=== PATIENT | female | born 1960 | race Two or more races ===

== ENCOUNTER 2017-03-30 13:01 | Day surgery (SDC) | payer OTHER ==
[~2017-03-30] VITALS: Ht 149.9 cm; Wt 54.2 kg
[2017-03-30] VITALS (11 sets, daily range): BP systolic 109–151; BP diastolic 60–68; PULSE 67–82; RESP 10–19; Ht 149.9 cm; Wt 54.2 kg
[~2017-03-30 13:01] MED LIST: CEFAZOLIN 2 GM/50 ML (PMX) 50 ML IVPB SCH; ONDA4TAB8 PO; SOD CHLORIDE 0.9% 1,000 ML IV SCH
--- NOTE | 2017-03-30 13:56 | RADRPT ---
PROCEDURE: XR Chest. CLINICAL INDICATION: Preoperative, cholecystectomy TECHNIQUE: Single frontal view of the chest was obtained COMPARISON: None FINDINGS: The heart and mediastinum are within normal limits. The lungs are clear. There is no pleural effusion or pneumothorax. RPTAT: AA IMPRESSION: No acute disease. .Jorge Zuluaga MD, MD Date Time Electronically viewed and signed by .Jorge uZluaga MD, on 03/30/2017 13:56 .S/
[2017-03-30] MEDS ORDERED: LISI20TA11 PO (14:43)
[2017-03-30] MEDS ORDERED: BUPIVACAINE 0.25% (MPF) 30 ML INJ ONE ×2 (16:20→17:36)
--- NOTE | 2017-03-30 16:43 | RADRPT ---
Vent Rate: 64 bpm RR Interval: 0 msec AR Interval: 142 msec QRS Duration: 80 msec QT Interval: 408 msec QTC Interval: 420 msec P-R-T [place]: 38 - -7 - 45 degrees Normal sinus rhythm Normal ECG Electronically Signed By: Aristeo Berrios [id number]
[2017-03-30] MEDS ORDERED: MIDAZOLAM 1 MG/ML 2 ML INJ ONE (17:02)
[2017-03-30] MEDS ORDERED: NEOSTIGMINE 3 MG/3 ML SYRINGE ONE (17:52)
[2017-03-30] MEDS ORDERED: LIDOCAINE 2% (SDV) 5 ML INJ ONE (17:52)
[2017-03-30] MEDS ORDERED: PROPOFOL 20 ML ONE (17:52)
[2017-03-30] MEDS ORDERED: ONDANSETRON 4 MG INJ ONE (17:52)
[2017-03-30] MEDS ORDERED: ROCURONIUM 50 MG INJ ONE (17:52)
[2017-03-30] MEDS ORDERED: GLYCOPYRROLATE 0.4 MG INJ ONE (17:52)
[2017-03-30] MEDS ORDERED: CEFAZOLIN 1 GM INJ ONE (17:52)
[2017-03-30] MEDS ORDERED: FENTAnyl 50 MCG/ML VIAL IV PRN (18:00)
[2017-03-30] MEDS ORDERED: HYDROCODONE/APAP (5/325) TAB PO ONE (18:00)
[2017-03-30] MEDS ORDERED: morphine (1 MG/ML) 10ML SYRINGE IV PRN ×2 (18:00)
[2017-03-30] MEDS ORDERED: ONDANSETRON 4 MG INJ IV PRN (18:00)
[2017-03-30] MEDS ORDERED: DIPHENHYDRAMINE 50 MG INJ IV PRN (18:00)
[2017-03-30] MEDS ORDERED: METOCLOPRAMIDE 10 MG INJ IV PRN (18:00)
[2017-03-30] MEDS ORDERED: MEPERIDINE 25 MG INJ IV PRN (18:00)
--- NOTE | 2017-03-30 18:18 | OPR ---
DATE OF OPERATION: 03/30/2017 INDICATION: This is a 56-year-old female with symptomatic gallstones and cholecystitis. She reques ts surgical excision. Risks, alternatives, benefits, and personnel were discussed with the patient. The patient expresses understanding and consents to the operation. PREOPERATIVE DIAGNOSIS: Symptomatic gallstones and cholecystitis. POSTOPERATIVE DIAGNOSIS: Symptomatic gallstones and cholecystitis. OPERATION PERFORMED: 1. Laparoscopic cholecystectomy. CPT code 69939. 2. Therapeutic injection of subcutaneous Marcaine. CPT code 00992. SURGEON: Duyen Bowen MD SPECIMEN: Gallbladder. COMPLICATIONS: None. ANESTHESIA: General. PROCEDURE: The patient was taken to the OR and prepped and draped in the usual sterile fashion. Naranjo rgical timeout was performed. IV antibiotics were given. Infraumbilical incision is made with a 15 blade. Dissection cautery was carried down to the external oblique fascia which was opened with cu rved Ferrer scissors. An 0 Vicryl U-stitch was placed into the fascia. Balloon Jacob trocar was int roduced. Pneumoperitoneum was established. Midepigastric 12 mm optical trocar and right upper quad rant and right upper flank 5 mm optical trocars are placed under direct visualization. Upon initial inspection, there were some adhesions to the gallbladder with evidence of hydropic gallbladder. Ne edle aspiration was performed of the gallbladder to relax the tension of the gallbladder. The cysti c duct was identified. The critical view was established. The cystic duct and cystic artery were d ivided using a 35 mm Pollard vascular stapler. Additional clips were placed in the staple line for reinforcement. Gallbladder was taken off the gallbladder bed. There was good hemostasis. Gallbladd er was retrieved using an EndoCatch bag. Additional suction irrigation was used in the gallbladder bed. There was good hemostasis. Ports were removed under direct visualization, 0 Vicryl U-stitch w as tied down. Skin was closed using skin aline. Local anesthesia was injected. Dry dressings we re applied. Dictated By: DUYEN LIM/KEERTHI Conf#: [id number] DID#: [id number]
== END 2017-03-30 19:23 | disposition home or self-care (01) ==
LOC: SDS 13:01
PROVIDERS: ATTEND Surgery
DX: K81.1 Chronic cholecystitis (principal); I10 Essential (primary) hypertension
CPT/HCPCS: 47562; 71010; 84703; 88304; 93005; J0690; J2250; J2270; J2405; J2710; J3010; Z7512; Z7610